=== PATIENT | male | born 1970 | race Caucasian/White ===

== ENCOUNTER → 2022-11-28 11:35 | Outpatient (CLI) | payer OTHER, SELFPAY ==
[2022-11-28 13:04] LABS: Add Manual Diff / Slide Review NO; Basophils Absolute Auto 0 /uL (0-100); Basophils Percent Auto 0.8 % (0-2); Eosinophils Absolute Auto 100 /uL (0-450); Eosinophils Percent Auto 3.1 % (2-4); Hematocrit 45.1 % (41-53); Hemoglobin 15.4 g/dL (13.5-17.5); Lymphocytes Absolute Auto 1600 /uL (1100-4500); Lymphocytes Percent Auto 34.8 % (25-40); Mean Corpuscular HGB Conc 34.2 % (30-36); Mean Corpuscular Hemoglobin 29.6 PG (26-34); Mean Corpuscular Volume 86.7 fL (80-100); Monocytes Absolute Auto 400 /uL (0-900); Monocytes Percent Auto 9.3 % (3-14); Neutrophils Absolute Auto 2500 /uL (1500-7000); Platelet Count 253 X10^3/uL (150-400); Red Cell Distribution Width 12.9 % (11.6-14.8); White Blood Cell Count 4.7 X10^3/uL (4.5-11.0)
[2022-11-28 13:34] LABS: Alanine Aminotransferase 44 IU/L (<50); Albumin 4.6 g/dL (3.5-5.0); Albumin Globulin Ratio 1.5 (1.0-2.8); Alkaline Phosphatase 55 U/L (38-126); Aspartate Aminotransferase 31 IU/L (17-59); BUN Creatinine Ratio 11.8 (6-22); Bilirubin Total 1.6 mg/dL (0.2-1.3); Blood Urea Nitrogen 12 mg/dL (9-20); Calcium 9.2 mg/dL (8.4-10.2); Carbon Dioxide 26 mmol/L (22-32); Chloride 101 mmol/L (98-107); Cholesterol 201 mg/dL (140-199); Estimated Glomerular Filt Rate > 60 mL/min (>60); Globulin 3.1 g/dL (1.7-4.1); Glucose 90 mg/dL (70-100); HDL Cholesterol 54 mg/dL (40-60); HEMOLYSIS < 15 (0-50); LDL Cholesterol Calculated 134 mg/dL (<100); Potassium 3.9 mmol/L (3.4-5.1); Sodium 139 mmol/L (137-145); Total Protein 7.7 g/dL (6.3-8.2); Triglycerides 67 mg/dL (35-150)
[2022-11-28 14:00] LABS: Prostate Specific Antigen Scrn 0.605 ng/mL (0.1-4.0)
== END ==
PROVIDERS: PCP Family Medicine; Referring Provider Family Medicine; Visit Provider Family Medicine
DX: Z01.89 Encounter for other specified special examinations (principal); Z12.5 Encounter for screening for malignant neoplasm of prostate
CPT/HCPCS: 36415; 80053; 80061; 83036; 85025; G0103

== ENCOUNTER 2023-10-02 09:05 | Day surgery (SDC) | payer OTHER, SELFPAY ==
--- NOTE | 2023-10-02 | PATH_ITS ---
[facility] Accession Number: [id number] No. of containers..03 Tissue . 01 Material submitted: . PART A: colon - DISTAL SIGMOID POLYP PART B: colon - ASCENDING COLON POLYP PART C: colon - SPLENIC FLEXURE POLYP . 01 Diagnosis: A. Distal Sigmoid Colon Polyp, Biopsy: Tubular adenoma. . B. Ascending Colon Polyp, Biopsy: Tubular adenoma. . C. Splenic Flexure Polyp, Biopsy: Tubular adenoma. MRV 10/14/2023 1452 Local . 01 Electronically signed: . Akanksha Connell MD, Pathologist NPI- [id number] . 01 Gross description: . Part A: DISTAL SIGMOID POLYP: Received in formalin are 3 fragment(s) of rivas, soft tissue measuring 0.3 x 0.2 x 0.2 cm to 0.6 x 0.5 x 0.4 cm submitted entirely in 1 cassette(s) Part B: ASCENDING COLON POLYP: Received in formalin are 2 fragment(s) of rivas, soft tissue measuring 0.3 x 0.2 x 0.2 cm to 0.5 x 0.3 x 0.2 cm submitted entirely in 1 cassette(s) Part C: SPLENIC FLEXURE POLYP: Received in formalin is 1 fragment(s) of rivas, soft tissue measuring 0.3 x 0.2 x 0.2 cm submitted entirely in 1 cassette(s) /ENRIQUE 10/03/2023 2240 Local . 01 Pathologist provided ICD-10: D12.5, D12.2, D12.3 . 01 CPT . 191613, 352107, 259889 Specimen Comment: A courtesy copy of this report has been sent to [phone] Performed at: [address] [place] [address] [place] [address] [address], [place], [place] [id number] MD Dylan Fox MD Phone: [phone]
[2023-10-02] MEDS: LACTATED RINGERS 1,000 ML 84 ML IV (09:20)
[2023-10-02 09:27] VITALS: BP 145/94; PULSE 95; RESP 16; TEMP 36.1; O2SAT 97; BMI 25.7
[2023-10-02 09:38] VITALS: BMI 25.7
--- NOTE | 2023-10-02 10:17 | PM.HP.1 ---
History of Present Illness History of Present Illness Date Patient Seen: 10/02/23 Time Patient Seen: 10:17 Chief complaint: Colonoscopy Narrative: colon cancer screening. Family history is grandmother over the age of 60. No symptoms PFSH Medical History Migraines Chicken pox (~1974) Well adult exam Family History Father Brain aneurysm Social History household members: spouse Smoking Status: Never smoker alcohol intake: current Meds Home Medications and Allergies Home Medications Medication Instructions Recorded Confirmed Type multivitamin combination no.56 1 tab PO DAILY 11/02/22 10/02/23 History Allergies Allergy/AdvReac Type Severity Reaction Status Date / Time Amoxycillin AdvReac Severe Difficulty Uncoded 10/02/23 09:39 Breathing Review of Systems Review of Systems ROS: Yes All systems reviewed with the patient and are negative except as otherwise documented Exam Vital Signs (past 8 hours): - 10/02/23 09:27 Temperature 96.9 F L Pulse Rate 95 H Respiratory Rate 16 Blood Pressure 145/94 H Pulse Oximetry 97 Oxygen Delivery Method Room Air Oxygen Delivery Method Room Air Const General: cooperative and healthy appearing Nutritional Appearance: average body habitus HENMT Head: normocephalic and atraumatic Ears: hearing grossly normal bilaterally Eyes General: appearance normal, both eyes and all related structures Sclera: normal sclerae Neck Neck: full ROM and trachea midline Chest Chest: normal inspection of the chest Resp Effort & Inspection: normal respiratory effort and able to speak in complete sentences Cardio Rate: regular rate Rhythm: regular rhythm GI Palpation: soft Skin General: elasticity normal Neuro General: patient alert, patient awake and patient oriented x3 Cognition: normal cognition Psych Appearance: grossly normal Mental Status: mental status grossly normal Judgment: judgment good Assessment & Plan Assessment & Plan narrative: Colon cancer screening with colonoscopy under anesthesia
--- NOTE | 2023-10-02 10:50 | PM.OP.COLON ---
Operative Date/Time/Diagnoses Date of procedure: 10/02/23 Time of procedure: 10:50 Pre-op diagnosis: Colon cancer screening Post-op diagnosis: same Procedure & Clinicians Study performed: Colonoscopy with cold snare polypectomy x3 Same procedure as scheduled: Yes Indications: Colon cancer screening Surgeon: Sridevi Velásquez Procedure Notes Procedure in detail: Preop diagnosis: Colon cancer screening Postop diagnosis: Same Operative procedure: Colonoscopy with cold snare polypectomy x3 Surgeon: Marlena Velásquez MD. Findings: 3 polyps all sessile and less than 4 mm in size. One in the distal ascending colon, 1 at the splenic flexure, and 1 distal descending colon Procedure: Patient placed in lateral position.Rectal exam performed showing normal tone no masses. Colonoscope inserted into the rectum and advanced to ileocecal valve with minimal difficulty. Insufflation extraction scope and the above findings. Retroflex was included in the rectum. Impression: 3 polyps grossly identified as a adenomatous. No diverticulosis Plan: Repeat colonoscopy in 5 years unless otherwise indicated by change in clinical condition Findings: polyp(s) (2 mm polyp sessile distal ascending; 2 mm polyp, sessile at splenic flexure; 3 mm polyp sessile distal descending approximately 30 cm) Specimen(s): other (Polyps x3) Complications: none Post-procedure Recommendations: Colonoscopy in 5 years Follow up: as needed Disposition: PACU
[2023-10-02 10:53] VITALS: BP 112/74; PULSE 91; RESP 21; TEMP 36.2; O2SAT 96
[2023-10-02 10:57] VITALS: BP 113/74; PULSE 84; RESP 21; TEMP 36.2; O2SAT 96
[2023-10-02 11:02] VITALS: BP 120/85; PULSE 82; RESP 18; TEMP 36.2; O2SAT 99
== END 2023-10-02 11:23 | disposition home or self-care (01) ==
PROVIDERS: PCP Family Medicine; Referring Provider Surgery; Visit Provider Surgery
PROC: 0DJD8ZZ Inspection of Lower Intestinal Tract, Via Natural or Artificial Opening Endoscopic (ICD-10-PCS; CPT 45378; principal; 2023-10-02 10:15)
DX: Z12.11 Encounter for screening for malignant neoplasm of colon (principal); D12.5 Benign neoplasm of sigmoid colon; D12.2 Benign neoplasm of ascending colon; D12.3 Benign neoplasm of transverse colon
CPT/HCPCS: 45385; J2704